=== PATIENT | female | born 1970 | race American Indian/Alaskan Native ===

== ENCOUNTER 2017-02-17 07:50 | Emergency (ER) | payer MEDICARE ==
--- NOTE | 2017-02-17 09:20 | XRay Report ---
RIGHT HIP RADIOGRAPHS INDICATION: Right hip pain. COMPARISON: None similar at this institution. FINDINGS: AP pelvis and a frog-leg projection of the right hip demonstrate bilateral femoral head AVN involving approximately 50-60% of articular surfaces bilaterally, left greater than right with flattening/irregularity. Femoral heads still positioned within the acetabulum. Numerous pelvic phleboliths, larger on the left. Intact pelvic articulation, including SI joints. Nonobstructive bowel gas pattern. CONCLUSION: Bilateral femoral head AVN, as described. Thank you for the opportunity to participate in this patient's care.
--- NOTE | 2017-02-17 11:49 | Emergency Department Report ---
HPI - General Chief Complaint: Extremity Problem,Nontraumatic Time Seen by Provider: 02/17/17 11:21 - HPI HPI: Room 24 The patient is a 46-year-old female presenting with a chief complaint of right hip pain. The patient states she has had right hip pain since May 2016. Patient states she has been followed by orthopedic surgeon to have an MRI performed last year. The patient states she was not given her diagnosis was sent to therapy for 3 months and the pain did decrease. However, for the past month the pain has been increasing. The patient states the pain was severe this morning making it difficult for her to get out of bed. Patient subsequently drove herself to the emergency department for pain control. Location: Right hip Duration: [see above] Quality: Pain Severity:04/11 Modifying factors: Weightbearing Context: [see above] Mode of transportation: The patient drove herself to the emergency department and there are no visitors present ED Past Medical Hx - Past Medical History Previous Medical History?: Yes Hx Hypertension: Yes Hx HIV: Yes Additional medical history: right hip pain - Surgical History Past Surgical History?: Yes Additional Surgical History: Carlo bunion removed, Right wrist surgery, Tubaligation, Hysterectomy - Family History Family history: no significant - Social History Smoking Status: Never Smoker Substance Use Type: None (denies illicit drug use) - Medications Home Medications: Home Medications Medication Instructions Recorded Confirmed Last Taken Type Darunavir Ethanolate [Prezista] 150 mg PO QDAY 02/17/17 02/17/17 Unknown History Emtricitabine/Tenofovir [Truvada 1 tab PO DAILY 02/17/17 02/17/17 Unknown History 133 mg-200 mg Tablet] HYDROcodone/APAP 5-325 [[place] 1 - 2 each PO Q6HR PRN #30 tablet 02/17/17 Unknown Rx 5/325] Ibuprofen [Motrin 800 MG tab] 800 mg PO Q8HR PRN #20 tablet 02/17/17 Unknown Rx Ritonavir [Norvir] 100 mg PO QDAY 02/17/17 02/17/17 Unknown History amLODIPine [Norvasc] 5 mg PO DAILY 02/17/17 02/17/17 Unknown History ED Review of Systems ROS: Stated complaint: HIP PAIN Other details as noted in HPI Comment: All other systems reviewed and negative Constitutional: denies: chills, fever Eyes: denies: eye pain, eye discharge, vision change ENT: denies: ear pain, throat pain Respiratory: no symptoms reported Cardiovascular: denies: chest pain, palpitations Endocrine: no symptoms reported Gastrointestinal: denies: abdominal pain, nausea, diarrhea Genitourinary: denies: urgency, dysuria, discharge Musculoskeletal: arthralgia Skin: denies: rash, lesions Neurological: denies: headache, weakness, paresthesias Psychiatric: denies: anxiety, depression Hematological/Lymphatic: denies: easy bleeding, easy bruising Physical Exam - Physical Exam Vital Signs: Vital Signs 02/17/17 07:59 Temperature 98.6 F Pulse Rate 82 Respiratory 20 Rate Blood Pressure 170/112 O2 Sat by Pulse 100 Oximetry Physical Exam: GENERAL: The patient is well-developed well-nourished female lying on stretcher appearing to be in mild discomfort. [] HEENT: Normocephalic. Atraumatic. Extraocular motions are intact. Patient has moist mucous membranes. NECK: Supple. Trachea midline CHEST/LUNGS: Clear to auscultation. There is no respiratory distress noted. HEART/CARDIOVASCULAR: Regular. There is no tachycardia. There is no gallop rub or murmur. ABDOMEN: Abdomen is soft, nontender. Patient has normal bowel sounds. There is no abdominal distention. SKIN: There is no rash. There is no edema. There is no diaphoresis. NEURO: The patient is awake, alert, and oriented. The patient is cooperative. The patient has normal speech MUSCULOSKELETAL: There is pain in the right hip with range of motion. There is no evidence of acute injury. ED Course Vital Signs 02/17/17 07:59 Temperature 98.6 F Pulse Rate 82 Respiratory 20 Rate Blood Pressure 170/112 O2 Sat by Pulse 100 Oximetry - Consultations Consultation #1: 02/17/17 11:[address] Camarena called-message left with staff. Informed to tell patient to call office for follow-up appointment Consultation #2: 02/17/17 11:46 Dr. Francis called 02/17/17 11:[address] Francis and he was made aware of the patient's presentation ED Medical Decision Making - Radiology Data Radiology results: report reviewed (bilateral hip x-ray), image reviewed ( bilateral hip x-ray) interpreted by me: Bilateral hip x-ray-no acute fractures Bilateral hip x-ray (read by radiologist)-bilateral femoral head avascular necrosis. - Differential Diagnosis avascular necrosis, arthritis, arthralgia Critical care attestation.: If time is entered above; I have spent that time in minutes in the direct care of this critically ill patient, excluding procedure time. ED Disposition Clinical Impression: Avascular necrosis of bones of both hips, Right hip pain Disposition: TO HOME OR SELFCARE Is pt being admited?: No Does the pt Need Aspirin: No Condition: Stable Instructions: Arthralgia (ED) Additional Instructions: Return to the emergency department immediately should you develop worsening symptoms, fever, inability to tolerate food or liquid or any other concerns. Prescriptions: HYDROcodone/APAP 5-325 [[place] 5/325] 1 - 2 each PO Q6HR PRN #30 tablet PRN Reason: Pain Ibuprofen [Motrin 800 MG tab] 800 mg PO Q8HR PRN #20 tablet PRN Reason: Pain Referrals: RAOUL SINGH JR, MD [Primary Care Provider] - 3-5 Days LUIS BATISTA MD [Staff Physician] - [facility] (Dr. Batista is an orthopedic surgeon. Please follow up with him or your orthopedic surgeon for further evaluation) Dr Camarena, your orthopedic surgeon [Other] - [facility] Time of Disposition: 11:55
[2017-02-17 12:11] VITALS: BP 154/89
== END 2017-02-17 12:11 | disposition home or self-care (01) ==
LOC: ED 07:50
DX: M87.9 Osteonecrosis, unspecified (principal); M25.551 Pain in right hip; I10 Essential (primary) hypertension
CPT/HCPCS: 99284

== ENCOUNTER 2017-09-01 07:17 | Emergency (ER) | payer MEDICARE ==
[2017-09-01 08:35] LABS: Bacteria,Urine 1+ /HPF (Negative); Bilirubin,Urine SM (Negative); Blood,Urine NEG (Negative); Color,Urine Amber (Yellow); Mucus,Urine 3+ /HPF; Nitrite,Urine NEG (Negative)
[2017-09-01 09:10] LABS: Ictotest,Urine Negative (Negative)
--- NOTE | 2017-09-01 09:38 | XRay Report ---
ROUTINE CHEST, TWO VIEWS: HISTORY: Cough, HIV. The trachea, heart, mediastinal contour, lung lind and bony thorax are unremarkable. Scoliosis is noted. IMPRESSION: Unremarkable chest x-ray.
[2017-09-01 14:04] LABS: Basophils % (Auto) 0.9 % (0.0-1.8); Eosinophils # (Auto) 0.2 K/mm3 (0.0-0.4); Eosinophils % (Auto) 3.7 % (0.0-4.3); Hematocrit 38.6 % (30.3-42.9); Hemoglobin 12.8 gm/dl (10.1-14.3); Lymphocytes # (Auto) 2.2 K/mm3 (1.2-5.4); Lymphocytes % (Auto) 39.6 % (13.4-35.0); Mean Corpuscular HGB Conc 33 % (30-34); Mean Corpuscular Hemoglobin 29 pg (28-32); Mean Corpuscular Volume 86 fl (79-97); Monocytes # (Auto) 0.4 K/mm3 (0.0-0.8); Monocytes % (Auto) 7.7 % (0.0-7.3); Platelet Count 271 K/mm3 (140-440); Red Blood Count 4.49 M/mm3 (3.65-5.03); Red Cell Distribution Width 14.6 % (13.2-15.2)
[2017-09-01 14:08] LABS: Alanine Aminotransferase 9 units/L (7-56); Albumin 4.1 g/dL (3.9-5); BUN/Creatinine Ratio 15; Blood Urea Nitrogen 9 mg/dL (7-17); Calcium 9.6 mg/dL (8.4-10.2); Hemolysis Index 5
[2017-09-01] MEDS ORDERED: LIDOCAINE VISCOUS 2% PO ONE (19:17)
[2017-09-01] MEDS ORDERED: ALUM-MAG HYDROX-SIMETH 200-200-20MG/5ML PO ONE (19:18)
[2017-09-01 19:50] VITALS: BP 148/92
--- NOTE | 2017-09-01 21:22 | Emergency Department Report ---
ED Abdominal Pain HPI - General Chief Complaint: Abdominal Pain Stated Complaint: ABD PAIN, COUGH Time Seen by Provider: 09/01/17 19:07 Source: patient Mode of arrival: Ambulatory Limitations: Physical Limitation - History of Present Illness Initial Comments: Patient developed intermittent abdominal pain in the epigastric region of moderate intensity and nonradiating with no aggravating or relieving factor. She has also had nausea and vomiting. She denies any diarrhea. Patient has just recently had a right hip replacement last month MD Complaint: abdominal pain -: Gradual Severity scale (0 -10): 10 Improves With: nothing Worsens With: nothing - Related Data Home Medications Medication Instructions Recorded Confirmed Last Taken Amlodipine Besylate [Norvasc] 10 mg PO QDAY 09/01/17 09/01/17 Unknown Ciprofloxacin HCl [Cipro] 500 mg PO BID 09/01/17 09/01/17 Unknown Elviteg/Cob/Emtri/Tenof Alafen 1 each PO QDAY 09/01/17 09/01/17 Unknown [Genvoya Tablet] Previous Rx's Medication Instructions Recorded Last Taken Type Famotidine [Pepcid] 20 mg PO BID #10 tablet 09/01/17 Unknown Rx Allergies Allergy/AdvReac Type Severity Reaction Status Date / Time Penicillins Allergy Shortness Verified 02/17/17 07:57 of Breath ED Review of Systems ROS: Stated complaint: ABD PAIN, COUGH Other details as noted in HPI Comment: All other systems reviewed and negative ED Past Medical Hx - Past Medical History Previous Medical History?: Yes Hx Hypertension: Yes Hx HIV: Yes Additional medical history: right hip pain, left hip - Surgical History Past Surgical History?: Yes Additional Surgical History: Carlo bunion removed, Right wrist surgery, Tubaligation, Hysterectomy, right hip surgery - Social History Smoking Status: Never Smoker Substance Use Type: Prescribed - Medications Home Medications: Home Medications Medication Instructions Recorded Confirmed Last Taken Type Amlodipine Besylate [Norvasc] 10 mg PO QDAY 09/01/17 09/01/17 Unknown History Ciprofloxacin HCl [Cipro] 500 mg PO BID 09/01/17 09/01/17 Unknown History Elviteg/Cob/Emtri/Tenof Alafen 1 each PO QDAY 09/01/17 09/01/17 Unknown History [Genvoya Tablet] Famotidine [Pepcid] 20 mg PO BID #10 tablet 09/01/17 Unknown Rx ED Physical Exam - General Limitations: No Limitations, Physical Limitation General appearance: alert, in no apparent distress - Head Head exam: Present: atraumatic, normocephalic - Eye Eye exam: Present: normal appearance - ENT ENT exam: Present: mucous membranes moist - Neck Neck exam: Present: normal inspection - Respiratory Respiratory exam: Present: normal lung sounds bilaterally. Absent: respiratory distress - Cardiovascular Cardiovascular Exam: Present: regular rate, normal rhythm. Absent: systolic murmur, diastolic murmur, rubs, gallop - GI/Abdominal GI/Abdominal exam: Present: soft, tenderness (tenderness to palpation of the epigastric area and periumbilical area), normal bowel sounds - Rectal Rectal exam: Present: deferred - Extremities Exam Extremities exam: Present: normal inspection - Back Exam Back exam: Present: normal inspection - Neurological Exam Neurological exam: Present: alert, oriented X3 - Psychiatric Psychiatric exam: Present: normal affect, normal mood - Skin Skin exam: Present: warm, dry, intact, normal color. Absent: rash ED Course Vital Signs 09/01/17 09/01/17 09/01/17 07:55 16:07 19:15 Temperature 98.4 F 98.1 F 98.4 F Pulse Rate 75 80 63 Respiratory 20 98 H 17 Rate Blood Pressure 134/88 Blood Pressure 153/91 148/92 [Left] O2 Sat by Pulse 99 100 Oximetry - Reevaluation(s) Reevaluation #1: 09/01/17 21:19 Patient got viscous lidocaine with Maalox with some slight improvement in the epigastric pain ED Medical Decision Making - Lab Data Result diagrams: 09/01/17 13:14 09/01/17 13:14 Critical care attestation.: If time is entered above; I have spent that time in minutes in the direct care of this critically ill patient, excluding procedure time. ED Disposition Clinical Impression: Gastritis Disposition: DC-01 TO HOME OR SELFCARE Is pt being admited?: No Does the pt Need Aspirin: No Condition: Stable Instructions: Abdominal Pain (ED), Gastritis (ED) Prescriptions: Famotidine [Pepcid] 20 mg PO BID #10 tablet Referrals: RAOUL SINGH JR, MD [Primary Care Provider] - 2-3 Days Forms: Work/School Release Form(ED) Time of Disposition: 21:25 Print Language: [place]
== END 2017-09-01 21:45 | disposition home or self-care (01) ==
LOC: ED 07:17
DX: K29.70 Gastritis, unspecified, without bleeding (principal); I10 Essential (primary) hypertension; Z21 Asymptomatic human immunodeficiency virus [HIV] infection status; Z90.710 Acquired absence of both cervix and uterus; Z88.0 Allergy status to penicillin
CPT/HCPCS: 36415; 71046; 80053; 81001; 85025